=== PATIENT | female | born 1980 | race Caucasian/White ===

== ENCOUNTER 2019-02-06 19:57 | Emergency (ER) | payer MEDICAID ==
[~2019-02-06] VITALS: Ht 154.9 cm; Wt 63.5 kg
[2019-02-06 20:03] VITALS: BP_SYST 129
[2019-02-06] MEDS ORDERED: HYDROcodone/ACETAMIN 5-325 MG TAB (NORCO/ VICODIN) PO ONE (22:00)
[2019-02-06 23:08] VITALS: BP_SYST 122
== END 2019-02-06 23:11 | disposition home or self-care (01) ==
LOC: SED 19:57
DX: S13.4XXA Sprain of ligaments of cervical spine, initial encounter (principal); S33.5XXA Sprain of ligaments of lumbar spine, initial encounter; S23.3XXA Sprain of ligaments of thoracic spine, initial encounter; S63.92XA Sprain of unspecified part of left wrist and hand, initial encounter; V43.52XA Car driver injured in collision with other type car in traffic accident, initial encounter; Y93.89 Activity, other specified; Y92.410 Unspecified street and highway as the place of occurrence of the external cause; Y99.8 Other external cause status
CPT/HCPCS: 36415; 72072-TC; 72100-TC; 72125-TC; 84702-TC; 99284